=== PATIENT | female | born 1970 | race Caucasian/White ===

== ENCOUNTER 2025-04-26 08:29 | Outpatient (REF) | payer OTHER, SELFPAY ==
--- NOTE | ~2025-04-26 | XR_ITS ---
CLINICAL HISTORY: M25.562 - Pain in left knee 3 view left knee Comparison: None provided Findings: No fractures or dislocations. Moderate degenerative disease with joint space narrowing and tricompartmental spurring. No joint effusion. No radiopaque foreign body. IMPRESSION: 1. No acute findings. Moderate DJD. This document has been electronically signed by: Imani Lind MD on 04/26/2025 22:40:28
--- OUTSIDE RECORDS SUMMARY | 2025-04-27 08:52 | XMS_ITS | Clinical Summary ---
Author Organization [facility] Address [address] [place] [address] Phone Care Team Providers Care [employer] Name Role Phone Dena Peter NP Primary Care Provider [phone] Allergies No known active allergies Medications multivitamin with minerals (CENTRUM/CERTAVI T) 18-400 mg-mcg tablet tablet Take by mouth. Active Active Problems Problem Noted Date Diagnosed Date Right carpal tunnel syndrome 12/01/2024 Carpal tunnel syndrome on left 12/01/2024 Encounters Date Type Department Care Team Description 03/07/2025 12:12 PM EDT - 03/07/2025 11:59 PM EDT Hospital Encounter [facility] [address] [place] [address] Carpal tunnel syndrome on left; Right carpal tunnel syndrome Discharge Disposition: Home or Self Care from Last 3 Months Immunizations Name Administration Dates Next Due Pfizer SARS-CoV-2 COVID-19, mRNA, LNP-S, preservative free 11/27/2020,11/06/2020 Surgical History Surgery Date Site/Laterality Comments FOOT SURGERY Bilateral PROCEDURE: HISTORICAL FOOT SURGERY; COMMENT: B/L cheilectomy BREAST REDUCTION 2010 PROCEDURE: GA BREAST REDUCTION Social History Tobacco Use Types Packs/Day Years Used Date Smoking Tobacco: Unknown Alcohol Use Standard Drinks/Week Comments Yes 0 (1 standard drink = 0.6 oz pur e alcohol) Comments No Sex and Gender Information Value Date Recorded Sex Assigned at Not on file Legal Sex Female 8:57 PM EST Gender Identity Not on file Sexual Orientation Not on file Obstetrics History Last Filed Vital Signs Vital Sign Reading Time Taken Comments Blood Pressure - - Pulse - - Temperature - - Respiratory Rate - - Oxygen Saturation - - Inhaled Oxygen Concentration - - Weight 61.2 kg (135 lb) 12/14/2024 3:41 PM EST Height 149.9 cm (4' 11 ) 12/14/2024 3:41 PM EST Body Mass Index 27.27 12/14/2024 3:41 PM EST Plan of Treatment Health Maintenance Due Date Last Done Comments Hepatitis B Vaccines (1 of 3 - 19+ 3-dose series) 1989 Cervical Cancer Screening: Pap Smear 1991 Colorectal Cancer Screening: Colonoscopy 12/10/2019 Depression Screening 12/10/2019 HIV Screening 12/10/2019 Social Influencers of Health Screening 12/10/2019 Pneumococcal Vaccine: 50+ Years (1 of 1 - PCV) 2020 Zoster Vaccines (1 of 2) 2020 COVID-19 Vaccine ( season) 2024 09/25/2022, 09/24/2022, 08/13/2021, Additional history exists Influenza Vaccine (Season Ended) 2025 08/14/2023, 09/29/2022, 08/21/2019 Breast Cancer Screening 10/05/2026 10/05/20 24, 10/13/2023, 09/24/2022, Additional history exists Cholesterol Screening (Lipid Panel) 11/05/2027 11/05/2022 DTaP,Tdap,and Td Vaccines (2 - Td or Tdap) 12/22/2029 12/22/2019 Hepatitis C Screening Completed 03/01/2021 HIB Vaccines Aged Out No longer eligi ble based on patient's age to complete this topic HPV Vaccines Aged Out No longer eligi ble based on patient's age to complete this topic Hepatitis A Vaccines Aged Out No long er eligible based on patient's age to complete this topic IPV Vaccines Aged Out No longer eligi ble based on patient's age to complete this topic MMR Vaccines Aged Out No longer eligi ble based on patient's age to complete this topic Meningococcal ACWY Vaccine Aged Out N o longer eligible based on patient's age to complete this topic Meningococcal B Vaccine Aged Out No l onger eligible based on patient's age to complete this topic Pneumococcal Vaccine: Pediatrics (0 to 5 Years) and At-Risk Patients (6 to 64 Years) Aged Out No longer eligible based on patient's age to complete this topic RSV Immunization Patients Under 20 months Aged Out No longer eligible based on patient's age to complete this topic Varicella Vaccines Aged Out No longer eligible based on patient's age to complete this topic Procedures Procedure Name Priority Date/Time Associated Diagnosis Comments EMG 2 LIMBS Routine 03/07/2025 1:20 PM EDT Carpal tunnel syndrome on left Right carpal tunnel syndrome MG MAMMO DIGITAL SCREENING W ELIZA BILAT Routine 10/05/2024 1:01 PM EST Encounter for screening mammogram for breast cancer from Last 3 Months or Most Recently Relevant to Health Maintenance Results * EMG two limbs (03/07/2025 1:20 PM EDT) Narrative Mignon Albrecht MD - 03/07/2025 2:29 PM EDT See report in chart review Procedure Note Mignon Albrecht MD - 03/07/2025 See report in chart review Maggie Orozco MD NEUROLOGY ORDERABLES Final Re sult * MG Mammo Digital Screening w Eliza bilat (10/05/2024 1:01 PM EST) Anatomical Region Laterality Modality Breast Bilateral Mammography 10/05/2024 11:5 7 AM EST Impressions 10/05/2024 12:05 PM EST No mammographic evidence of malignancy. A negative mammogram in the presence of a clinically suspicious palpable abnormality does not preclude the possibility of malignancy or alter the indications for biopsy. PQRI CPT II 3342F Code 74782, 63118 PQRI 225 CPT II 7025F TISSUE DENSITY: There are scattered areas of fibroglandular density. (BI-RADS category B) IMPRESSION: Benign. BI-RADS CATEGORY: 2 - BENIGN RECOMMENDATION: Screening bilateral mammogram is recommended in 1 year. Mammo Location: [facility], [address] [place] [id number] -------- FINAL REPORT -------- Dictated By: Mehran Root Dictated Date: 10/05/2024 11:57 ET Assigned Physician: Mehran Root Reviewed and Electronically Signed By: Mehran Root Signed Date: 10/05/2024 12:05 ET Workstation ID: [id number] Transcribed By: Self Edit Transcribed Date: 10/05/2024 11:57 ET Narrative 10/05/2024 12:05 PM EST CLINICAL: The patient is a 54 years Female presenting for routine screening mammography. The patient underwent reduction mammoplasty in 2011. COMPARISON: Most recently 09/30/2023 and most remotely 08/26/2017. TECHNIQUE: Full-field digital mammography of the breasts bilaterally consisting of tomosynthesis in MLO and CC projection is performed in the [employer] 2000-D unit. Computer aided detection utilizing the [employer] system was utilized. FINDINGS: The breasts are seen to be composed of a combination of fatty and fibroglandular elements, without significant change as compared to prior studies. Sequela of reduction mammoplasty, with left breast calcifications likely representing calcified fat necrosis, are stable. A few scattered punctate and rim calcifications are again seen bilaterally. There is no suspicious cluster of microcalcifications, mass, or area of architectural distortion. There is no skin thickening or nipple retraction. Procedure Note Mehran Root MD - 10/05/2024 CLINICAL: The patient is a 54 years Female presenting for routinescreening mammography. The patient underwent reduction mammoplasty [id number]. COMPARISON: Most recently 09/30/2023 and most remotely 08/26/2017. TECHNIQUE: Full-field digital mammography of the breasts bilaterallyconsisting of tomosynthesis in MLO and CC projection is performed in the[employer] 2000-D unit. Computer aided detection utilizing the [employer]system was utilized. FINDINGS: The breasts are seen to be composed of a combination of fattyand fibroglandular elements, without significant change as compared toprior studies. Sequela of reduction mammoplasty, with left breastcalcifications likely representing calcified fat necrosis, are stable. Afew scattered punctate and rim calcifications are again seen bilaterally.There is no suspicious cluster of microcalcifications, mass, or area ofarchitectural distortion. There is no skin thickening or nippleretraction. IMPRESSION: No mammographic evidence of malignancy. A negative mammogram in the presence of a clinically suspicious palpableabnormality does not preclude the possibility of malignancy or alter theindications for biopsy. PQRI CPT II 3342F Code 66518, 59824 PQRI 225 CPT II 7025F TISSUE DENSITY: There are scattered areas of fibroglandular density.(BI-RADS category B) IMPRESSION: Benign. BI-RADS CATEGORY: 2 - BENIGN RECOMMENDATION: Screening bilateral mammogram is recommended in 1 year. Mammo Location: [facility], [address] [place] [id number] -------- FINAL REPORT -------- Dictated By: Mehran Root Dictated Date: 10/05/2024 11:57 ET Assigned Physician: Mehran Root Reviewed and Electronically Signed By: Mehran Root Signed Date: 10/05/2024 12:05 ET Workstation ID: [id number] Transcribed By: Self Edit Transcribed Date: 10/05/2024 11:57 ET us Self Referral Sppl IMG BI PROCEDURES Final Resul t from Last 3 Months or Most Recently Relevant to Health Maintenance Insurance [employer] Care Teams [employer] Relationship Specialty Start Date End Date Dena Peter NP [address] [place] [id number] PCP - General Family Medicine 10/26/24
== END 2025-04-26 08:30 | disposition home or self-care (01) ==
LOC: HO.HOSX 08:29
PROVIDERS: Visit Provider Orthopaedic Surgery
DX: M25.562 Pain in left knee (principal)
CPT/HCPCS: 73562

== ENCOUNTER → 2025-04-26 08:45 | Outpatient (BNV) | payer OTHER, SELFPAY | PROVIDERS: Visit Provider Student in an Organized Health Care Education/Training Program | DX: M17.12 Unilateral primary osteoarthritis, left knee (principal) | CPT/HCPCS: 73562 ==

== ENCOUNTER 2025-04-26 08:46 | Outpatient (AMB) | payer OTHER, SELFPAY ==
--- NOTE | 2025-04-26 08:52 | A.OFFVIS_ITS ---
Vital Signs 04/26/25 08:53 Height 4 ft 10 in Weight 130 lb BMI 27.2 Intake Visit Reasons: Left knee pain and giving way Intake Note: Nola is a 54 year old female who presents with complaints of progressively worsening left knee pain and giving way. The patient describes her pain as sharp and severe in nature. Most of the pain is along the medial aspect of her knee. The patient's symptoms have gotten worse over the last few years in spite of continued non operative treatments. She did injure her knee approximately 1 year ago. She twisted her knee while performing yoga exercises. She states that her left knee will give out several times per day. She has tried activity modifications which gave her minimal relief. She has also tried Tylenol and anti-inflammatory medicines which gave her minimal relief. 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 Physical Exam Vital Signs: BMI result Body Mass Index 27.2 Const Other: Well-nourished well-developed very friendly female awake alert and oriented x3 in no acute distress Extrem Other: Left knee examination shows a minimal effusion, mild crepitus with range of motion, tenderness along her medial joint line, positive Addis's test, no instability Results Reviewed Results Reviewed: X-rays of the patient's left knee show mild diffuse joint space narrowing, no acute bony abnormalities Assessment & Plan Assessment & Plan (1) Tear of medial meniscus of left knee: Code(s): S83.242A - Other tear of medial meniscus, current injury, left knee, initial encounter Category: Medical Plan Ms. Greco presents with progressively worsening left knee pain and mechanical symptoms most likely due to a medial meniscus tear. Thus, I will send the patient for an MRI of her left knee for further evaluation. I will see her back once the MRI is completed to discuss the findings and treatment options. Feel free to call me at any time should questions regarding her orthopedic management arise. I spent 20 minutes in reviewing the patient's records and imaging studies, seeing the patient and documenting in the medical record. Orders: Orders XR knee LT 3V Today M25.562 - Pain in left knee MR knee LT wo con Today S83.242A - Other tear of medial meniscus, current injury, left knee, initial encounter Coding Level of Care Code New Pt Level 3 (36626) Complex EM visit Add On G2211 Diagnoses Tear of medial meniscus of left knee S83.242A
[2025-04-26 08:53] VITALS: BMI 27.2
== END 2025-04-26 09:09 | disposition home or self-care (01) ==
LOC: HO.HOS 08:46
PROVIDERS: PCP Nurse Practitioner; Visit Provider Orthopaedic Surgery
DX: S83.242A Other tear of medial meniscus, current injury, left knee, initial encounter (principal)
CPT/HCPCS: 99203; G2211